=== PATIENT | male | born 1980 | race Caucasian/White ===

== ENCOUNTER 2024-04-07 09:31 | Emergency (ER) | payer MEDICAID, OTHER ==
[~2024-04-07] VITALS: Ht 175.3 cm; Wt 100.2 kg
[2024-04-07 09:34] VITALS: BP 137/83; PULSE 92; RESP 16; TEMP 98.2; O2SAT 96
[2024-04-07] MEDS ORDERED: AMOX-580 PO (12:39)
[2024-04-07] MEDS ORDERED: IBUP-1986 PO (12:40)
[2024-04-07] MEDS ORDERED: ACET-1025 PO (12:40)
== END 2024-04-07 12:48 | disposition home or self-care (01) ==
LOC: ER 09:33
DX: K04.7 Periapical abscess without sinus (principal); F15.90 Other stimulant use, unspecified, uncomplicated; Z98.890 Other specified postprocedural states; Z59.00 Homelessness unspecified
CPT/HCPCS: 99283

== ENCOUNTER 2024-11-23 23:40 | Emergency (ER) | payer MEDICAID ==
[~2024-11-23] VITALS: Ht 175.3 cm; Wt 135.0 kg
[~2024-11-23 23:40] MED LIST: IBUP-1986 PO
--- NOTE | 2024-11-24 00:09 | Physician Documentation ---
History of Present Illness ~ General Chief Complaint: See Chief Complaint Stated Complaint: General Time Seen by MD: 00:00 Primary Medical Doctor: Christine Ding History of Present Illness Initial Comments This is a 44-year-old gentleman with a a history of methamphetamine use, daily, presents for evaluation of a I feel like, poison, I feel like this is not just meth, feel like there is poison in my meth, my skin is burning. 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 Last meth use was several hours ago. There is no chest pain, no difficulty breathing, no nausea, no vomiting, no abdominal pain. The gentleman is homeless. Medication Reconciliation Allergies: Coded Allergies: No Known Allergies (Unverified , 11/23/24) Scheduled Ibuprofen (Ibuprofen), 1 TAB PO Q8H Past Medical History Past Medical History: No Pertinent History Past Surgical History: orthopedic surgeries Alcohol Use: None Drug Use: methamphetamine Lives In: Homeless Review of Systems ROS 10 point review of systems was performed and unless noted above in HPI is negative for acute process/complaint. Physical Exam Physical Exam Vital Signs: Temperature: 97.2, Source: Temporal, Heart Rate: 73, Respiratory Rate: 16, BP: 128/103, Pulse Oximetry: 100, Weight: 135.000 Oxygen Flow Rate: 0 Physical Exam Physical examination: GENERAL: Awake, alert, oriented, GCS 15, no apparent distress, non-toxic appearing, answers questions, follows commands appropriately. HEENT: Atraumatic, normocephalic, pupils equal, extraocular muscles intact Active gross movements, sclerae anicteric, mucus membranes moist, no stridor. NECK: Midline, no JVD CARDIOVASCULAR: Good skin perfusion without evidence of pallor, mottling. PULMONARY: Nonlabored, symmetric chest rise, no audible wheezing, no accessory muscle use, no respiratory distress, speaking in full sentences. GASTROINTESTINAL: Not distended. NEUROLOGIC: Lucid with normal mental status. Normal facial symmetry. Moves all extremities symmetrically and with purpose. No truncal ataxia. Speech is fluid without evidence of dysarthria or aphasia, no focal deficits appreciated. EXTREMITIES: Acute deformities Skin: warm, dry PSYCHIATRIC: Anxious affect, normal insight, normal concentration. Focused exam: [] Progress Results/Orders Results/Orders Completed Orders - JUAN VANEGAS DO Olanzapine Disint. Tablet (Zyprexa Zydis (11/24/24 00:10) Diphenhydramine Inj (Benadryl Inj.) (11/24/24 00:10) Medications Received in ER Medications (Trade) Dose Ordered Sig/Shawn Route PRN Reason Start Time Stop Time Status Last Admin Dose Admin (ZyPREXA zydis tablet) 10 mg ONCE ONCE PO 11/24/24 00:10 11/24/24 00:14 DC 11/24/24 00:42 10 MG (Benadryl inj.) 50 mg ONCE ONCE IM 11/24/24 00:10 11/24/24 00:14 DC 11/24/24 00:41 50 MG Vital Signs 11/23/24 11/24/24 11/24/24 23:52 00:13 00:50 Temp 97.2 98.6 Pulse 73 78 Resp 16 16 17 B/P (MAP) 128/103 121/92 Pulse Ox 100 99 O2 Flow Rate 0 Medical Decision Making Findings Facility Status: ED Holds, RME process The plan was discussed with the patient, who demonstrates clear understanding of the plan and is in agreement with the plan unless otherwise noted in the chart. All questions have been answered, all concerns were addressed unless otherwise documented. I was available throughout their ED stay for frequent reassessment and questions. Differential Diagnoses (considered and possible or likely): [Methamphetamine induced anxiety, methamphetamine induced psychosis, methamphetamine intoxication, less likely thyroid storm, less likely thyrotoxicosis, less likely alcohol intoxication or alcohol withdrawal.] ??Differential Diagnoses (considered and unlikely, not requiring evaluation currently): [Denies any other somatic complaints] MDM Data Please see [facility] for the following: Independent Historians and external Records Review. Historian: [Patient] Independent Historians: ?[Record review] Medication Management: [Reviewed medication list] Social History and determinants: [Reviewed] Please see the body of the note for the following: Any independent int erpretations of ECG, imaging studies. All vitals signs/haemodynamics, ordered tests were independently reviewed and interpreted by myself. Nursing triage complaint and vitals reviewed, additional nursing notes were reviewed as available and I agree unless otherwise noted or documented in contradiction in the chart Vital Signs: Independently reviewed Labs: Independently interpreted Imaging: Independently interpreted Old Medical Records: Independently reviewed, see HPI for relevant summary and information Pulse Oximetry: [100%] interpreted as [normal on room air] by me [Materials Technician: [Regular Rate, Regular rhythm, no ectopy, NSR] reviewed and interpreted by me] Additionally notably showing: [Hemodynamically stable] Tests considered but not ordered include: [Hematologic workup and imaging has been considered but does not appear to be necessary given clinical nature of diagnosis] Social Determinants of Health Impact: Patient was evaluated in [facility], [facility] [place] due to below par ratio of patient to medical providers. [] Comorbid Conditions Impacting Present Evaluation and Care/Treatment: [Methamphetamine abuse] Management Discussions with other Healthcare Providers: [None] Treatment and Disposition Medication Management (Given or considered): [Antipsychotics, antianxiety medicines]. See EMR for details Consideration for Hospitalization/Escalation/Deescalation of Care: Admission for observation has been considered, [however the patient is able to tolerate p.o., their symptoms are controlled, they are able to rely on oral medications, and their chief complaint/diagnosis can be managed on outpatient basis.] ?ED Course:?[No clinical deterioration. He improved after medication.] ?Shared decision making:?[Patient is hemodynamically stable for discharge home with follow with their primary care provider. [ ] Specific and cautious return precautions provided and discussed with full understanding. Any incidental findings were also discussed and follow up recommendations given. [] All questions answered. Patient/family were able to verbalize back return precautions. Patient/family agree to plan. Copies of imaging and laboratory studies were provided.] Code status:?FULL Please see the full Electronic Medical Record for full details of nursing documentation, medications list, other records of complete past medical history and conditions, vital signs, laboratory studies, and any radiologic study interpretations by radiologists. Portions of this note were completed using [employer] dictation software and as a result there may exist minor errors in spelling. I have reviewed elements of past family and social history and agree as included in note. Departure Disposition: 01 HOME / SELF CARE / HOMELESS Impression: Primary Impression: Methamphetamine intoxication Additional Impressions: Anxiety Homelessness Condition: Improved Discharge Instructions: Managing Anxiety, Adult, Methamphetamines Use Disorder Additional Instructions: Please stop using meth, it only makes her anxiety worse and it gives use symptoms like you are poisoned. Referrals: NO PRIMARY CARE PROVIDER (PCP) Education Educated: Patient Educated regarding: diagnosis, treatment, prognosis, need for follow up Signature Scribe Signature: No scribe Attestation: This note accurately reflects clinical decisions, work performed by myself, DO GUILHERME Patton NICHOLAS M DO Nov 24, 2024 00:09
[2024-11-24] MEDS: OLANZapine 5mg rapidly disint. tablet PO ONE (00:42)
[2024-11-24 00:50] VITALS: BP 121/92; PULSE 78; RESP 17; TEMP 98.6; O2SAT 99
[2024-11-24] MEDS ORDERED: iohexol 300mg/ml 100ml inj. ONE (18:05)
== END 2024-11-24 00:57 | disposition home or self-care (01) ==
LOC: ER 23:41
DX: F15.129 Other stimulant abuse with intoxication, unspecified (principal); F41.9 Anxiety disorder, unspecified; Z59.00 Homelessness unspecified; Z98.890 Other specified postprocedural states; Z79.899 Other long term (current) drug therapy
CPT/HCPCS: 96372; 99283; J1200; Q9967